=== PATIENT | male | born 1985 ===

== ENCOUNTER 2018-08-22 13:42 | Emergency (ER) | payer OTHER ==
[~2018-08-22] VITALS: Ht 180.3 cm; Wt 95.3 kg
== END 2018-08-22 14:42 | disposition home or self-care (01) ==
LOC: ER 13:42
DX: S40.012A Contusion of left shoulder, initial encounter (principal); W18.09XA Striking against other object with subsequent fall, initial encounter; Y93.89 Activity, other specified; Y92.828 Other wilderness area as the place of occurrence of the external cause; Y99.8 Other external cause status